=== PATIENT | male | born 1955 | race American Indian/Alaskan Native ===

== ENCOUNTER 2024-09-19 19:34 | Emergency (ER) | payer BC ==
[~2024-09-19] VITALS: Ht 167.6 cm; Wt 102.1 kg
[2024-09-19] MEDS ORDERED: LEVOTHYROXINE25 MCG (19:42)
[2024-09-19] MEDS ORDERED: TETANUS & DIPHTHERIA TOX,ADULT 0.5 ML VIAL IM ONE (21:15)
[2024-09-19] MEDS ORDERED: LIDOCAINE HCL 1% 10ML VIAL PERCUT ONE (21:15)
[2024-09-19] MEDS ORDERED: CEFTRIAXONE SODIUM 1,000 MG VIAL IM ONE (21:15)
[2024-09-19] MEDS ORDERED: LIDOCAINE HCL 1% 10ML VIAL ONE (21:32)
[2024-09-19] MEDS ORDERED: CEFTRIAXONE SODIUM 1,000 MG VIAL ONE (21:33)
[2024-09-19] MEDS ORDERED: DIPHTH,PERTUSS(ACELL),TET VAC 0.5 ML SYRINGE IM ONE (21:33)
[2024-09-19] MEDS ORDERED: CEFUROXIME500 MG PO (22:10)
[2024-09-19] MEDS ORDERED: PEPCID AC20 MG PO (22:10)
== END 2024-09-19 22:24 | disposition home or self-care (01) ==
LOC: ER 22:02
DX: S01.02XA Laceration with foreign body of scalp, initial encounter (principal); W22.8XXA Striking against or struck by other objects, initial encounter; Y93.89 Activity, other specified; Y92.89 Other specified places as the place of occurrence of the external cause; Z88.8 Allergy status to other drugs, medicaments and biological substances